=== PATIENT | female | born 1965 | race Caucasian/White ===

== ENCOUNTER 2017-07-24 03:18 | Emergency (ER) | payer BC ==
[2017-07-24 03:56] VITALS: BP 155/103
--- NOTE | 2017-07-24 04:17 | EDM.PDOC ---
ED HPI GENERAL MEDICAL PROBLEM - General Chief Complaint: ENT Problem Stated Complaint: sob Time Seen by Provider: 07/24/17 03:28 Source of Information: Reports: Patient, Family (), Old Records, RN Notes Reviewed History Limitations: Reports: No Limitations - History of Present Illness INITIAL COMMENTS - FREE TEXT/NARRATIVE: The patient states that she has been suffering from seasonal allergies for months. She saw her PCP, Dr. Damian, in March, and was prescribed Dymista nasal spray, which she states did not help. She then saw her food management aide this past , 07/17/2017, and was started on Mary-D and Omnaris nasal spray, which she started 07/18/2017. She states that these have not helped, either. She now presents with the sensation that her throat is closing, and that she cannot get enough air, since 22:30 tonight. She denies prior similar symptoms. It is noted that the patient's oxygen saturation is 100% on room air. 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 She is on immunosuppressant medications. The patient admits that she has been very anxious about her medical condition. - Related Data Allergies Allergy/AdvReac Type Severity Reaction Status Date / Time house dust Allergy Severe Other Verified 01/26/16 12:14 ciprofloxacin HCl Allergy Anaphylactic Verified 01/26/16 12:14 [From Cipro] Shock Sugars, Metabolically Active AdvReac Mild Other Verified 01/26/16 12:14 yeast, dried [yeast] AdvReac Mild Other Verified 01/26/16 12:14 Home Meds: Home Meds ClonazePAM [KlonoPIN] 0.5 mg PO BEDTIME 07/30/14 [History] Furosemide [Lasix] 80 mg PO DAILY 07/30/14 [History] Lactase [Lactaid] 3,000 units PO ASDIRECTED PRN 07/30/14 [History] Cholecalciferol (Vitamin D3) [Vitamin D3] 50,000 unit PO WEEKLY 11/08/15 [ History] Loperamide HCl [Imodium A-D] 4 mg PO ASDIRECTED PRN 11/08/15 [History] Ondansetron [Zofran ODT] 8 mg PO Q8H PRN 12/30/15 [History] oxyCODONE ER [OxyCONTIN] 20 mg PO Q12HR 11/08/15 [History] Fexofenadine [Mary] 180 mg PO Q24H PRN 12/30/15 [History] Vitamin A 20,000 intnl unit PO DAILY 01/26/16 [History] Lactulose [Cephulac] 20 gm PO Q12H 30 Days cup 01/29/16 [Rx] Rifaximin [Xifaxan] 550 mg PO BID #60 tablet 01/29/16 [Rx] Spironolactone [Aldactone] 12.5 mg PO DAILY #30 tablet 01/29/16 [Rx] Past Medical History HEENT History: Reports: Allergic Rhinitis, Other (See Below) Other HEENT History: WEARS CONTACTS Gastrointestinal History: Reports: 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, with subsequent portal hypertension, including esophageal varices), Other (See Below) (Primary sclerosing cholangitis) Hematologic History: Reports: Anemia - Past Surgical History GI Surgical History: Reports: Lysis of Adhesions, Other (See Below) (Liver transplant April 2016) Social & Family History - Family History Family Medical History: Noncontributory - Tobacco Use Smoking Status *Q: Never Smoker Second Hand Smoke Exposure: No - Caffeine Use Caffeine Use: Reports: Soda - Alcohol Use Alcohol Use History: No - Recreational Drug Use Recreational Drug Use: No - Living Situation & Occupation Living situation: Reports: ([facility]), with Spouse Occupation: Employed ED ROS GENERAL - Review of Systems Review Of Systems: See Below Constitutional: Reports: No Symptoms HEENT: Reports: Rhinitis Respiratory: Reports: Shortness of Breath Cardiovascular: Reports: No Symptoms Endocrine: Reports: No Symptoms GI/Abdominal: Reports: No Symptoms : Reports: No Symptoms Musculoskeletal: Reports: No Symptoms Skin: Reports: No Symptoms Neurological: Reports: No Symptoms Psychiatric: Reports: No Symptoms Hematologic/Lymphatic: Reports: No Symptoms Immunologic: Reports: No Symptoms ED EXAM, GENERAL - Physical Exam Exam: See Below Exam Limited By: No Limitations General Appearance: Alert, WD/WN, No Apparent Distress, Anxious Eye Exam: Bilateral Eye: Normal Inspection Ears: Normal External Exam, Normal Canal, Hearing Grossly Normal, Normal TMs Nose: Normal Inspection, Normal Mucosa (nasal passages are wide open), No Blood Throat/Mouth: Normal Inspection, Normal Lips, Normal Teeth, Normal Gums, Normal Oropharynx, Normal Voice, No Airway Compromise Head: Atraumatic, Normocephalic Neck: Normal Inspection, Supple, Non-Tender, Full Range of Motion. No: Lymphadenopathy (L), Lymphadenopathy (R) Respiratory/Chest: No Respiratory Distress, Lungs Clear, Normal Breath Sounds, No Accessory Muscle Use. No: Crackles, Rhonchi, Wheezing Cardiovascular: Normal Peripheral Pulses, Regular Rate, Rhythm, No Gallop, No JVD, No Murmur, No Rub Peripheral Pulses: 4+: Radial (L), Radial (R) GI/Abdominal: Normal Bowel Sounds, Soft, Non-Tender, No Organomegaly, No Distention, No Abnormal Bruit, No Mass (Female) Exam: Deferred Rectal (Female) Exam: Deferred Back Exam: Normal Inspection, Full Range of Motion, NT Extremities: Normal Inspection, Normal Range of Motion, No Pedal Edema, Normal Capillary Refill Neurological: Alert, Oriented, Normal Cognition, No Motor/Sensory Deficits Psychiatric: Anxious Skin Exam: Warm, Dry, Intact, Normal Color, No Rash Lymphatic: No Adenopathy Course - Vital Signs Last Recorded V/S: Last Vital Signs Temp 37.1 C 07/24/17 03:24 Pulse 115 H 07/24/17 03:24 Resp 22 H 07/24/17 03:24 BP 155/103 H 07/24/17 03:24 Pulse Ox 100 07/24/17 03:24 - Re-Assessments/Exams Free Text/Narrative Re-Assessment/Exam: 07/24/17 04:11 The patient's oxygen saturation is 100% on room air, although the patient feels like she cannot get enough air. Clearly, the patient is hyperventilating. We discussed the option of confirming this with an ABG, but I don't feel that it is necessary, and neither does she. Hyperventilation is usually caused by anxiety, although there are medical conditions that can cause it, as well, however, in this case, it is quite clear that the patient is suffering from anxiety, and has likely been suffering from anxiety for several months, which would help explain why the Dymista, Mary, and Omnaris have been ineffective. Additionally, the patient appears to have clear nasal passages, not consistent with severe nasal congestion due to allergies. The patient has an appointment to see Dr. Damian this friday, 2016. I am recommending to the patient that they discuss long-term treatment options for anxiety at that visit. Departure - Departure Time of Disposition: 04:14 Disposition: Home, Self-Care 01 Condition: Good Clinical Impression: Hyperventilation syndrome, Anxiety - Discharge Information Instructions: Panic Attacks, [id number] Referrals: iT Tucker MD [Primary Care Provider] - Forms: ED Department Discharge Additional Instructions: You were seen in the emergency room for the sensation of your throat closing, and that you could not get enough air. In the emergency room, it was noticed that your oxygen saturation was 100% on room air, consistent with hyperventilation. On examination, your nasal passages and throat appeared to be open and normal. Your symptoms are MOST LIKELY due to anxiety. We recommend you discuss long-term treatment options for anxiety with Dr. Atiya Luna when you see him this 07/29/2017. If any other problems, please do not hesitate to return to the ER.
== END 2017-07-24 04:28 | disposition home or self-care (01) ==
LOC: JD.ED 03:18
DX: F45.8 Other somatoform disorders (principal); F41.9 Anxiety disorder, unspecified; Z88.1 Allergy status to other antibiotic agents; Z79.899 Other long term (current) drug therapy; Z86.2 Personal history of diseases of the blood and blood-forming organs and certain disorders involving the immune mechanism
CPT/HCPCS: 99283

== ENCOUNTER 2018-05-01 15:31 | Emergency (ER) | payer OTHER, BC ==
[2018-05-01 15:47] VITALS: BP 128/78
--- NOTE | 2018-05-01 15:56 | EDM.PDOC ---
ED HPI GENERAL MEDICAL PROBLEM - General Chief Complaint: Upper Extremity Injury/Pain Stated Complaint: RIGHT WRIST INJURY Time Seen by Provider: 05/01/18 15:47 Source of Information: Reports: Patient, Family History Limitations: Reports: No Limitations - History of Present Illness INITIAL COMMENTS - FREE TEXT/NARRATIVE: The patient states that she grabbed her car door handle around 14:30, but slipped because it was wet, falling backwards onto her buttocks and right hand/ wrist. She presents with pain and swelling to the dorsal aspect of her right hand, at the base of her right thumb. She is otherwise uninjured. The patient's PCP is Dr. Damian. Right Wrist Pain Score (Numeric/FACES): 8 - Related Data Allergies Allergy/AdvReac Type Severity Reaction Status Date / Time house dust Allergy Severe Other Verified 05/01/18 15:39 ciprofloxacin HCl Allergy Anaphylactic Verified 05/01/18 15:39 [From Cipro] Shock Sugars, Metabolically Active AdvReac Mild Other Verified 05/01/18 15:39 yeast, dried [yeast] AdvReac Mild Other Verified 05/01/18 15:39 Home Meds: Home Meds ClonazePAM [KlonoPIN] 0.5 mg PO BEDTIME 07/30/14 [History] Furosemide [Lasix] 80 mg PO DAILY 07/30/14 [History] Lactase [Lactaid] 3,000 units PO ASDIRECTED PRN 07/30/14 [History] Cholecalciferol (Vitamin D3) [Vitamin D3] 50,000 unit PO WEEKLY 11/08/15 [ History] Loperamide HCl [Imodium A-D] 4 mg PO ASDIRECTED PRN 11/08/15 [History] Ondansetron [Zofran ODT] 8 mg PO Q8H PRN 11/08/15 [History] oxyCODONE ER [OxyCONTIN] 20 mg PO Q12HR 11/08/15 [History] Fexofenadine [Mary] 180 mg PO Q24H PRN 12/30/15 [History] Vitamin A 20,000 intnl unit PO DAILY 01/26/16 [History] Lactulose [Cephulac] 20 gm PO Q12H 30 Days cup 01/29/16 [Rx] Rifaximin [Xifaxan] 550 mg PO BID #60 tablet 01/29/16 [Rx] Spironolactone [Aldactone] 12.5 mg PO DAILY #30 tablet 01/29/16 [Rx] Acetaminophen/HYDROcodone [Homestead 325-5 MG] 1 - 2 tab PO Q6H PRN #20 tablet 05/01 [Rx] Past Medical History HEENT History: Reports: Allergic Rhinitis, Other (See Below) Other HEENT History: WEARS CONTACTS Gastrointestinal History: Reports: Other (See Below) (Hx primary sclerosing cholangitis, leading to cirrhosis and portal hypertension, including esophageal varices, now status post liver transplant April 2016) Hematologic History: Reports: Anemia - Past Surgical History GI Surgical History: Reports: Lysis of Adhesions, Other (See Below) (Liver transplant April 2016) Social & Family History - Family History Family Medical History: Noncontributory - Tobacco Use Smoking Status *Q: Never Smoker - Caffeine Use Caffeine Use: Reports: None - Recreational Drug Use Recreational Drug Use: No - Living Situation & Occupation Living situation: Reports: ([facility]), with Spouse Occupation: Employed Review of Systems - Review of Systems Review Of Systems: ROS reveals no pertinent complaints other than HPI. ED EXAM, GENERAL - Physical Exam Exam: See Below Exam Limited By: No Limitations General Appearance: Alert, WD/WN, Mild Distress (Appears uncomfortable) Extremities: Other (Significant swelling over the base of the right thumb and carpal bones. There is tender. No significant ecchymosis. Minimal pain is induced with compression of the mid radius and ulna. Pain is induced with attempt at supination. Neurovascular status of the right upper extremity is intact.) ED TRAUMA EXTREMITY PROCEDURES - Splinting Right Upper Extremity Splint Site: Rt wrist Pre-Procedure NV Status: Normal Post-Procedure NV Status: Normal Splint Material: Fiberglass Splint Design: Gutter Applied & Form Fitted By: Provider Provider Post-Splint Application NV Check: NV Status Normal, Good Position Complications: No Course - Vital Signs Last Recorded V/S: Last Vital Signs Temp 36.3 C 05/01/18 15:43 Pulse 96 05/01/18 15:43 Resp 18 05/01/18 15:43 BP 128/78 05/01/18 15:43 Pulse Ox 99 05/01/18 15:43 - Orders/Labs/Meds Orders: Active Orders 24 hr Category Date Time Status Hand Comp Min 3V Rt [CR] Stat Exams 05/01/18 15:51 Taken Wrist Comp Min 3V Rt [CR] Stat Exams 05/01/18 15:51 Taken Meds: Medications Discontinued Medications Generic Name Dose Route Start Last Admin Trade Name Freq PRN Reason Stop Dose Admin Hydromorphone HCl 0.5 mg 05/01/18 16:04 05/01/18 16:13 Dilaudid IM 05/01/18 16:05 0.5 mg ONETIME STA Administration - Re-Assessments/Exams Free Text/Narrative Re-Assessment/Exam: 05/01/18 15:52 The patient has obvious swelling to the base of her right thumb, and associated carpal bones. She was offered pain medication, but declined at this time. 05/01/18 16:05 The patient has changed her mind and would like something for pain. I have ordered Dilaudid 0.5 mg IM. 05/01/18 16:34 4-view radiographs of the right hand appear to demonstrate a comminuted and moderately dorsally displaced fracture of the distal radius. No other bony injuries seen. Formal read per the Radiologist pending. 4-view radiographs of the right wrist appear to demonstrate a comminuted and moderately dorsally displaced fracture of the distal radius. The ulnar styloid appears to be intact. Formal read per the Radiologist pending. 05/01/18 17:14 A gutter splint was placed on the patient's right upper extremity, extending from the MCPs to just above her elbow, in a thumbs-up position, with the elbow at 90. An arm sling was provided for the patient. She will be discharged home with a prescription for Homestead, and a referral to Dr. Stephenson. Departure - Departure Time of Disposition: 17:15 Disposition: Home, Self-Care 01 Condition: Good Clinical Impression: Distal radius fracture, right - Discharge Information Prescriptions: Acetaminophen/HYDROcodone [Homestead 325-5 MG] 1 - 2 tab PO Q6H PRN #20 tablet PRN Reason: Pain (Severe 7-10) Referrals: Ti Tucker MD [Primary Care Provider] - Jaycob Stephenson MD [Physician] - Forms: ED Department Discharge Additional Instructions: You were seen in the emergency room after falling onto your right wrist while opening your vehicle door. Workup in the ER included x-rays of your right hand and wrist, which demonstrated a distal right radius fracture. Your right arm has been placed into a splint. The splint cannot get wet. Do not remove the splint. Elevate and ice your right wrist is much as possible over the next 2 days, to help minimize swelling. An ice pack to be placed directly onto the splint over your wrist. Take [id number] ibuprofen, 2-3 tablets (400-600 mg) every 8 hours, with food, as needed for pain. You have been prescribed the narcotic pain medication Homestead. Take 1-2 tablets of Homestead up to every 6 hours, as needed for pain not relieved by ibuprofen. If you take Homestead, do not drive for 10 hours afterwards. Homestead will likely cause constipation, so consider taking a stool softener. There is a good chance that you will require surgery. Follow-up with your own Orthopedic Surgeon, or Dr. Stephenson, this coming week. If any other problems, please do not hesitate to return to the ER. - My Orders Last 24 Hours: My Active Orders 05/01/18 15:51 Hand Comp Min 3V Rt [CR] Stat Wrist Comp Min 3V Rt [CR] Stat - Assessment/Plan Last 24 Hours: My Active Orders 05/01/18 15:51 Hand Comp Min 3V Rt [CR] Stat Wrist Comp Min 3V Rt [CR] Stat
[2018-05-01] MEDS ORDERED: HYDROmorphone 0.5 MG/0.5 ML SYRINGE IM STA (16:04)
--- NOTE | 2018-05-04 07:49 | CR ---
Right wrist: Four views of the right wrist were obtained. Comparison: No prior wrist exam. Distal radial fracture is seen with slight comminution and articular extension. Slight posterior impaction is seen. Fracture within the ulnar styloid process is noted. Incidental cystic change is seen within the carpal bones. Diffuse soft tissue swelling is seen. Impression: 1. Distal radial fracture as described above as well as ulnar styloid avulsion fracture. 2. Soft tissue swelling and incidental cystic change within the carpal bones. Diagnostic code #3
--- NOTE | 2018-05-04 07:49 | CR ---
Right hand: Four views of the right hand were obtained. Comparison: No prior hand exam. Distal radial fracture is seen with posterior impaction. Fracture is seen within the ulnar styloid process. No fracture is seen within the hand. Impression: 1. Distal radial and ulnar styloid process fracture. 2. Nothing acute is seen within the right hand. Diagnostic code #3
== END 2018-05-01 17:30 | disposition home or self-care (01) ==
LOC: JD.ED 15:31
DX: S52.501A Unspecified fracture of the lower end of right radius, initial encounter for closed fracture (principal); Z88.1 Allergy status to other antibiotic agents; Z88.8 Allergy status to other drugs, medicaments and biological substances; Z79.899 Other long term (current) drug therapy; W18.39XA Other fall on same level, initial encounter
CPT/HCPCS: 29125; 73110; 73130; 99283; J1170

== ENCOUNTER 2018-05-24 19:39 | Emergency (ER) | payer BC, OTHER ==
[2018-05-24 20:11] VITALS: BP 155/100
--- NOTE | 2018-05-24 20:46 | EDM.PDOC ---
ED HPI GENERAL MEDICAL PROBLEM - General Chief Complaint: General Stated Complaint: NEEDS BLOOD CHECK Time Seen by Provider: 05/24/18 20:22 Source of Information: Reports: Patient, Family () History Limitations: Reports: No Limitations - History of Present Illness INITIAL COMMENTS - FREE TEXT/NARRATIVE: The patient states that she wants her hemoglobin checked, and, since we're drawing blood, her potassium as well. She states that she has been feeling cold for about a month, progressively getting worse. She states that she was feeling dizzy last week. She felt head pressure today, and also feels like her stomach was full yesterday, and today. She noticed blood streaks in an otherwise normal stool last week and again today. No recent nausea, vomiting, consultation, or diarrhea. No urinary symptoms. No recent fever. No recent chest pain, palpitations, or dyspnea. Specifically, the patient does not complain of easy fatigability or a roaring sound in her ears. She states that she had similar symptoms previously, before her liver transplantation. She states that her normal hemoglobin is around 11, last checked on or about 05/14, as pre-op for left wrist ORIF 05/15/2018. The patient's PCP is Dr. Damian. - Related Data Allergies Allergy/AdvReac Type Severity Reaction Status Date / Time house dust Allergy Severe Other Verified 05/01/18 15:39 ciprofloxacin HCl Allergy Anaphylactic Verified 05/01/18 15:39 [From Cipro] Shock Sugars, Metabolically Active AdvReac Mild Other Verified 05/01/18 15:39 yeast, dried [yeast] AdvReac Mild Other Verified 05/01/18 15:39 Home Meds: Home Meds Furosemide [Lasix] 40 mg PO BID 07/30/14 [History] Fexofenadine [Mary] 180 mg PO Q24H PRN 12/30/15 [History] Calcium Carb & Citrate/Vit D3 [Calcium + D3 ER Tablet] 10 ml PO DAILY 05/24/18 [ History] Cyclobenzaprine [Flexeril] 10 mg PO BEDTIME 05/24/18 [History] Docusate Sodium [Stool Softener] 200 mg PO DAILY 05/24/18 [History] Everolimus [Zortress] 4 mg PO BID 05/24/18 [History] Pantoprazole Sodium [Protonix] 0 mg PO BID 05/24/18 [History] Spironolactone [Aldactone] 100 mg PO ASDIRECTED 05/24/18 [History] rOPINIRole [Requip] 0.5 mg PO ASDIRECTED 05/24/18 [History] Past Medical History HEENT History: Reports: Allergic Rhinitis, Impaired Vision Gastrointestinal History: Reports: Other (See Below) (Primary sclerosing cholangitis leading to cirrhosis, leading to portal hypertension and esophageal varices, requiring liver transplantation) Musculoskeletal History: Reports: Fracture (right radius) Hematologic History: Reports: Anemia - Past Surgical History GI Surgical History: Reports: Cholecystectomy, Lysis of Adhesions, Other (See Below) (Liver transplant April 2016) Musculoskeletal Surgical History: Reports: ORIF (right radius 05/15/2018) Social & Family History - Family History Family Medical History: Noncontributory - Tobacco Use Smoking Status *Q: Never Smoker - Caffeine Use Caffeine Use: Reports: Soda - Alcohol Use Alcohol Use History: No - Recreational Drug Use Recreational Drug Use: No - Living Situation & Occupation Living situation: Reports: , with Spouse Occupation: Employed ([employer]) ED ROS GENERAL - Review of Systems Review Of Systems: ROS reveals no pertinent complaints other than HPI. ED EXAM, GENERAL - Physical Exam Exam: See Below Exam Limited By: No Limitations General Appearance: Alert, WD/WN, No Apparent Distress, Anxious Eye Exam: Bilateral Eye: EOMI, Normal Inspection, Other (conjunctiva slightly pale) Ears: Normal External Exam, Hearing Grossly Normal Nose: Normal Inspection, No Blood Throat/Mouth: Normal Inspection, Normal Lips, Normal Voice, No Airway Compromise Head: Atraumatic, Normocephalic Neck: Normal Inspection, Full Range of Motion Respiratory/Chest: No Respiratory Distress, Lungs Clear, Normal Breath Sounds, No Accessory Muscle Use Cardiovascular: Normal Peripheral Pulses, No Gallop, No JVD, No Murmur, No Rub, Tachycardia (regular) Peripheral Pulses: 4+: Radial (L), Radial (R) GI/Abdominal: Normal Bowel Sounds, Soft, No Organomegaly, No Distention, No Abnormal Bruit, No Mass, Tender (Generalized, non-focal, mild) (Female) Exam: Deferred Rectal (Female) Exam: Deferred Back Exam: Normal Inspection, Full Range of Motion, NT Extremities: Normal Inspection, Normal Range of Motion, No Pedal Edema, Normal Capillary Refill Neurological: Alert, Oriented, Normal Cognition, No Motor/Sensory Deficits Psychiatric: Anxious Skin Exam: Warm, Dry, Intact, Normal Color, No Rash Course - Vital Signs Last Recorded V/S: Last Vital Signs Temp 36.6 C 05/24/18 20:10 Pulse 107 H 05/24/18 20:10 Resp 20 05/24/18 20:10 BP 155/100 H 05/24/18 20:10 Pulse Ox 99 05/24/18 20:10 Orthostatic Blood Pressure [ 140/98 Standing] Orthostatic Blood Pressure [ 139/89 Supine] - Orders/Labs/Meds Orders: Active Orders 24 hr Category Date Time Status Orthostatic Vital Signs [RC] STAT Care 05/24/18 20:40 Active - Re-Assessments/Exams Free Text/Narrative Re-Assessment/Exam: 05/24/18 20:43 The patient is here requesting that her hemoglobin be checked, and, while we're at it, her potassium. Upon questioning, the patient states that she has been feeling cold for more than a month, getting worse, that she felt dizzy last week , that she feels head pressure today, that her stomach feels full since yesterday, and that she noticed some blood mixed with otherwise normal stool last week and again today. No other constitutional symptoms. I have ordered orthostatics; if she is orthostatic, I will order some blood work, if not, then it may be difficult to justify non-emergent bloodwork from the ED, when it could just as easily be ordered tomorrow morning by her PCP. 05/24/18 21:19 The patient is not orthostatic. 05/24/18 21:30 Anemia was discussed with the patient and her . Anemia essentially causes two problems - decreased oxygen delivery to the tissues, and, if acute and severe, hypovolemia. As the patient is not orthostatic, she is not hypovolemic. She has no symptoms of decreased oxygen delivery, which would produce easy fatigability, dyspnea, palpitations, and a roaring sound in her ears. If she is anemic, it must therefore be a slow, chronic drop in her hemoglobin, slow enough that her body has been able to volume compensate for it. This is unlikely, since her hemoglobin was at her baseline of 11 less than 2 weeks ago. Additionally, none of the patient's symptoms - feeling cold, feeling dizzy last week, feeling head pressure today, and feeling a full stomach yesterday and today - are symptoms of anemia. These symptoms seem more consistent with ethmoid sinusitis. Lastly, the patient's conjunctiva are only mildly pale. I offered to draw her CBC if she first filled out an ABN, however, the patient would prefer to follow-up with her PCP, Dr. Damian, tomorrow. Departure - Departure Time of Disposition: 21:38 Disposition: Home, Self-Care 01 Condition: Good Clinical Impression: Patient requested test - Discharge Information *PRESCRIPTION DRUG MONITORING PROGRAM REVIEWED*: Not Applicable *COPY OF PRESCRIPTION DRUG MONITORING REPORT IN PATIENT NBA: Not Applicable Referrals: Ti Tucker MD [Primary Care Provider] - Forms: ED Department Discharge Additional Instructions: You were seen in the emergency room requesting that your hemoglobin and potassium be checked. Evaluation in the ER included orthostatic blood pressures, which returned as normal. You are not volume depleted. As discussed, feeling cold, dizzy last week, head pressure today, and the feeling of a full stomach yesterday and today are not symptoms of anemia or hypokalemia, therefore checking a hemoglobin or potassium would be difficult to justify from the emergency department. Follow-up with your PCP, Dr. Damian, tomorrow, 05/25/2018, for an outpatient evaluation. If any other problems, please do not hesitate to return to the ER. - My Orders Last 24 Hours: My Active Orders 05/24/18 20:40 Orthostatic Vital Signs [RC] STAT - Assessment/Plan Last 24 Hours: My Active Orders 05/24/18 20:40 Orthostatic Vital Signs [RC] STAT
== END 2018-05-24 21:50 | disposition home or self-care (01) ==
LOC: JD.ED 19:39
DX: Z13.9 Encounter for screening, unspecified (principal)
CPT/HCPCS: 99283; 99284

== ENCOUNTER 2021-12-13 10:42 | Emergency (ER) | payer BC ==
[2021-12-13] MEDS ORDERED: HYDROmorphone 1 MG/ML Syringe IVPUSH ONE ×2 (12:27→15:43)
[2021-12-13] MEDS: Sodium Chloride 0.9% 10 ML Syringe FLUSH PRN ×3 (12:48→16:58)
[2021-12-13] MEDS ORDERED: Ketorolac 30 MG/ML SDV IVPUSH ONE (15:43)
[2021-12-13] MEDS ORDERED: methylPREDNISolone Sodium Succinate 125 MG/2 ML SDV IVPUSH ONE (16:46)
[2021-12-13] MEDS ORDERED: Ondansetron 4 MG Tab.DIS PO ONE (18:32)
== END 2021-12-13 18:25 | disposition home or self-care (01) ==
LOC: JD.ED 10:42
DX: M79.604 Pain in right leg (principal); M79.605 Pain in left leg; Z88.1 Allergy status to other antibiotic agents; Z91.018 Allergy to other foods; Z91.048 Other nonmedicinal substance allergy status; Z86.16 Personal history of COVID-19
CPT/HCPCS: 36415; 80053; 82550; 83735; 84550; 85025; 85610; 85652; 85730; 86038; 86140; 86430; 93925; 93925-26; 96374; 96375; 96376; 99284-25; A9270-GY; J1170; J1885; J2930

== ENCOUNTER 2022-08-15 02:33 | Observation (INO) | payer BC ==
[2022-08-15] MEDS ORDERED: Ondansetron 4 MG/2 ML SDV IVPUSH ONE (04:10)
[2022-08-15] MEDS ORDERED: Piperacillin/Tazobactam 4.5 GM Vial ONE (04:11)
[2022-08-15] MEDS ORDERED: Ondansetron 4 MG/2 ML SDV ONE (04:11)
[2022-08-15] MEDS ORDERED: Sodium Chloride 0.9% 1,000 ML ONE (04:11)
[2022-08-15] MEDS ORDERED: Sodium Chloride 0.9% 100 ML ONE (04:11)
[2022-08-15] MEDS ORDERED: Piperacillin/Tazobactam 4.5 GM in Sodium Chloride 0.9% 100 ML IV ONE ×2 (04:12→20:00)
[2022-08-15 04:45] LABS: ESTIMATED GFR 40 mL/min (>60)
[2022-08-15] MEDS ORDERED: Sodium Chloride 0.9% 1,000 ML IV ONE (05:15)
[2022-08-15] MEDS ORDERED: LORazepam 2 MG/ML SDV ONE (05:40)
[2022-08-15] MEDS ORDERED: LORazepam 2 MG/ML SDV IVPUSH ONE (06:02)
[2022-08-15] MEDS ORDERED: Iopamidol 755 Mg/ML 100 ML Bottle IVPUSH ONE (06:14)
[2022-08-15] MEDS ORDERED: Sodium Chloride 0.9% 100 ML IV SCH (06:15)
[2022-08-15] MEDS ORDERED: Albuterol/Ipratropium 3.0-0.5 MG/3 ML Neb Soln ONE ×2 (06:32→18:37)
[2022-08-15] MEDS ORDERED: Azithromycin 500 MG Vial ONE (09:06)
[2022-08-15] MEDS ORDERED: Sodium Chloride 0.9% 250 ML ONE (09:06)
[2022-08-15] MEDS ORDERED: Dextrose 5%-Lactated Ringers 1,000 ML ONE (09:10)
[2022-08-15] MEDS ORDERED: Azithromycin 500 MG in Sodium Chloride 0.9% 250 ML IV ONE (09:32)
[2022-08-15] MEDS ORDERED: Albuterol/Ipratropium 3.0-0.5 MG/3 ML Neb Soln NEB PRN (10:16)
[2022-08-15] MEDS ORDERED: Lactated Ringers 1,000 ML IV ONE ×2 (10:32→21:15)
[2022-08-15] MEDS ORDERED: Benzonatate 100 MG Cap ONE ×2 (10:46→18:46)
[2022-08-15] MEDS ORDERED: Benzonatate 100 MG Cap PO ONE ×2 (10:46→18:50)
[2022-08-15] MEDS ORDERED: Heparin Sodium 5,000 Units/ML Vial SUBCUT ONE (14:20)
[2022-08-15] MEDS ORDERED: Albuterol/Ipratropium 3.0-0.5 MG/3 ML Neb Soln INH ONE (18:30)
[2022-08-15] MEDS ORDERED: Furosemide 40 MG Tab PO ONE (21:00)
[2022-08-21 15:11] VITALS: BP 115/76; PULSE 110
== END 2022-08-16 13:40 | disposition home or self-care (01) ==
LOC: JD.ED 02:33 → JD.ZCENSUS 12:07 → JD.ED 12:56
PROVIDERS: ADMIT Hospitalist; ATTEND Hospitalist
DX: R05.9 Cough, unspecified (principal); J32.9 Chronic sinusitis, unspecified; J21.9 Acute bronchiolitis, unspecified; J18.9 Pneumonia, unspecified organism; Z79.899 Other long term (current) drug therapy
CPT/HCPCS: 36415; 70486; 70486-26; 71045; 71045-26; 71275; 71275-26; 74177; 74177-26; 80053; 81001; 83605; 83690; 83735; 84145; 84484; 85025; 85652; 86140; 86738; 87040; 93005; 93010; 94640; 94667; 96365; 96366; 96367; 96375; 99217; 99220; 99284; 99285-25; A9270-GY; J0456; J1644; J2060; J2405; J2543; J7030; J7050; J7120; J7620-GY; Q9967

== ENCOUNTER 2022-12-17 16:38 | Emergency (ER) | payer BC ==
[2022-12-17 17:12] VITALS: PULSE 117
[2022-12-17 17:17] VITALS: BP 135/92
[2022-12-17 18:34] LABS: ESTIMATED GFR 48 mL/min (>60)
[2022-12-17] MEDS ORDERED: Sodium Chloride 0.9% 1,000 ML IV SCH (19:30)
== END 2022-12-17 21:20 | disposition left against medical advice (07) ==
LOC: JD.ED 16:38
DX: R10.12 Left upper quadrant pain (principal); Z88.1 Allergy status to other antibiotic agents; Z88.0 Allergy status to penicillin; Z91.018 Allergy to other foods; Z91.048 Other nonmedicinal substance allergy status; Z91.09 Other allergy status, other than to drugs and biological substances
CPT/HCPCS: 36415; 80053; 83690; 83735; 85025; 85379; 86140; 99284

== ENCOUNTER 2023-09-11 06:42 | Day surgery (SDC) | payer BC ==
[~2023-09-11 06:42] MED LIST: Lactated Ringers 1,000 ML IV SCH; Lidocaine 0.5% 50 ML SDV ONE; Sodium Chloride 0.9% 10 ML Syringe FLUSH PRN; Sodium Chloride 0.9% 10 ML Syringe FLUSH SCH
[2023-09-11] MEDS ORDERED: fentaNYL 100 MCG/2 ML SDV ONE (06:43)
[2023-09-11] MEDS ORDERED: Lidocaine 1% 2 ML ONE (06:43)
[2023-09-11] MEDS ORDERED: Propofol 200 MG/20 ML SDV ONE ×2 (06:43→07:54)
[2023-09-11] MEDS ORDERED: Midazolam 1 MG/ML 2 ML SDV ONE (07:32)
[2023-09-11] MEDS ORDERED: ceFAZolin 2 GM Vial ONE (07:43)
[2023-09-11] MEDS ORDERED: Dexmedetomidine 200 MCG/2 ML SDV ONE (07:44)
[2023-09-11] MEDS ORDERED: Ondansetron 4 MG/2 ML SDV ONE (08:07)
[2023-09-11] MEDS ORDERED: Bupivacaine 0.25% 10 ML SDV ONE (09:09)
[2023-09-11 13:58] VITALS: BP 124/55; PULSE 97
== END 2023-09-11 10:23 | disposition home or self-care (01) ==
LOC: JD.SDS 06:42
PROVIDERS: ATTEND Orthopaedic Surgery
DX: G56.01 Carpal tunnel syndrome, right upper limb (principal); E11.22 Type 2 diabetes mellitus with diabetic chronic kidney disease; N18.30 Chronic kidney disease, stage 3 unspecified; E11.40 Type 2 diabetes mellitus with diabetic neuropathy, unspecified; K21.9 Gastro-esophageal reflux disease without esophagitis; E78.5 Hyperlipidemia, unspecified; M81.0 Age-related osteoporosis without current pathological fracture; G25.81 Restless legs syndrome; Z88.1 Allergy status to other antibiotic agents; Z88.0 Allergy status to penicillin; Z79.899 Other long term (current) drug therapy; Z79.52 Long term (current) use of systemic steroids
CPT/HCPCS: 64721; 87641; J0690; J2250; J2405; J2704; J3010; J3490; J7120

== ENCOUNTER 2023-10-06 11:36 | Emergency (ER) | payer BC ==
[2023-10-06] MEDS ORDERED: Sodium Chloride 0.9% 10 ML Syringe FLUSH PRN (12:03)
[2023-10-06] MEDS ORDERED: HYDROmorphone 0.5 MG/0.5 ML Syringe IVPUSH ONE (12:39)
[2023-10-06 12:50] LABS: BASOPHILS PERCENT AUTO 0.4 % (0.0-1.0); EOSINOPHILS ABSOLUTE AUTO 0.1 K/mm3 (0.0-0.4); EOSINOPHILS PERCENT AUTO 0.6 % (0.0-6.0); HEMOGLOBIN 11.5 gm/dl (12.0-16.0); IMMATURE GRAN ABSOLUTE AUTO 0.03 K/mm3 (0.00-0.05); IMMATURE GRAN PERCENT AUTO 0.4 % (0.0-0.4); LYMPHOCYTES ABSOLUTE AUTO 0.5 K/mm3 (1.0-4.8); LYMPHOCYTES PERCENT AUTO 6.4 % (24.0-44.0); MEAN CORPUSCULAR HGB CONC 33.8 g/dl (32.0-36.0); MEAN CORPUSCULAR VOLUME 91.6 fl (83.0-99.0); MEAN PLATELET VOLUME 9.3 fl (9.4-12.3); MONOCYTES ABSOLUTE AUTO 0.4 K/mm3 (0.0-0.8); MONOCYTES PERCENT AUTO 5.3 % (0.0-8.0); NEUTROPHILS ABSOLUTE AUTO 6.9 K/mm3 (1.8-7.7); NEUTROPHILS PERCENT AUTO 86.9 % (41.0-71.0); PLATELET COUNT,PLT 204 K/mm3 (150-400); RED BLOOD CELL COUNT 3.71 M/mm3 (4.10-5.30); WHITE BLOOD CELL COUNT,WBC 7.98 K/mm3 (3.9-11.3)
[2023-10-06 13:22] LABS: A/G RATIO 0.8 (1-2); ALBUMIN 3.8 g/dl (3.4-5.0); ANION GAP 14.4 (5-15); BILIRUBIN TOTAL 0.5 mg/dL (0.2-1.0); BUN/CREATININE RATIO 14.5 (14-18); C-REACTIVE PROTEIN 9.2 mg/dL (<1.0); CALCIUM 9.2 mg/dL (8.5-10.1); CREATININE 1.1 mg/dL (0.55-1.02); EST CRCL DRUG DOSING (CG) 40.04 mL/min; POTASSIUM,K 4.4 mEq/L (3.5-5.1); PROTEIN TOTAL,TP 8.3 g/dl (6.4-8.2)
[2023-10-06] MEDS ORDERED: cefTRIAXone 2 GM in Sodium Chloride 0.9% 100 ML IV ONE (13:48)
[2023-10-06 16:11] VITALS: BP 153/90; PULSE 102
== END 2023-10-06 15:05 | disposition home or self-care (01) ==
LOC: JD.ED 11:36
DX: L03.115 Cellulitis of right lower limb (principal); L03.116 Cellulitis of left lower limb; Z86.16 Personal history of COVID-19; Z77.22 Contact with and (suspected) exposure to environmental tobacco smoke (acute) (chronic); Z88.1 Allergy status to other antibiotic agents; Z88.8 Allergy status to other drugs, medicaments and biological substances; Z91.011 Allergy to milk products; Z91.048 Other nonmedicinal substance allergy status; Z88.0 Allergy status to penicillin; Z91.018 Allergy to other foods; Z79.899 Other long term (current) drug therapy
CPT/HCPCS: 36415; 80053; 85025; 86140; 96365; 96375; 99283; J0696; J1170; J3490; 99284

== ENCOUNTER 2023-11-11 10:37 | Emergency (ER) | payer BC ==
[2023-11-11] MEDS ORDERED: Sodium Chloride 0.9% 10 ML Syringe FLUSH PRN (11:10)
[2023-11-11] MEDS ORDERED: Sodium Chloride 0.9% 1,000 ML IV STA (11:11)
[2023-11-11] MEDS ORDERED: Ondansetron 4 MG/2 ML SDV IVPUSH ONE (11:11)
[2023-11-11 12:02] LABS: BASOPHILS PERCENT AUTO 0.4 % (0.0-1.0); EOSINOPHILS ABSOLUTE AUTO 0.4 K/mm3 (0.0-0.4); EOSINOPHILS PERCENT AUTO 3.8 % (0.0-6.0); HEMATOCRIT 35.9 % (37.0-47.0); HEMOGLOBIN 11.9 gm/dl (12.0-16.0); IMMATURE GRAN ABSOLUTE AUTO 0.03 K/mm3 (0.00-0.05); IMMATURE GRAN PERCENT AUTO 0.3 % (0.0-0.4); LYMPHOCYTES ABSOLUTE AUTO 1.1 K/mm3 (1.0-4.8); LYMPHOCYTES PERCENT AUTO 11.2 % (24.0-44.0); MEAN CORPUSCULAR HEMOGLOBIN 30.7 pg (28.0-32.0); MEAN CORPUSCULAR HGB CONC 33.1 g/dl (32.0-36.0); MEAN CORPUSCULAR VOLUME 92.8 fl (83.0-99.0); MEAN PLATELET VOLUME 8.5 fl (9.4-12.3); MONOCYTES ABSOLUTE AUTO 0.7 K/mm3 (0.0-0.8); MONOCYTES PERCENT AUTO 6.8 % (0.0-8.0); NEUTROPHILS ABSOLUTE AUTO 7.5 K/mm3 (1.8-7.7); NEUTROPHILS PERCENT AUTO 77.5 % (41.0-71.0); PLATELET COUNT,PLT 226 K/mm3 (150-400); RED BLOOD CELL COUNT 3.87 M/mm3 (4.10-5.30); WHITE BLOOD CELL COUNT,WBC 9.62 K/mm3 (3.9-11.3)
[2023-11-11 12:28] LABS: CORONAVIRUS COVID-19 NAA NEGATIVE (NEGATIVE); INFLUENZA A NAA NEGATIVE (NEGATIVE); RESPIRATORY SYNCYTIAL VIR NAA NEGATIVE (NEGATIVE)
[2023-11-11 13:14] LABS: APPEARANCE,URINE CLEAR (Clear); BILIRUBIN,URINE NEGATIVE (Negative); COLOR,URINE YELLOW (Yellow); GLUCOSE,URINE NEGATIVE (Negative); KETONES,URINE NEGATIVE (Negative); LEUKOCYTE ESTERASE,URINE NEGATIVE (Negative); NITRITE,URINE NEGATIVE (Negative); OCCULT BLOOD,URINE NEGATIVE (Negative); PROTEIN,URINE NEGATIVE (Negative); UROBILINOGEN,URINE 0.2 (0.2-1.0)
[2023-11-11 13:34] LABS: BACTERIA,URINE FEW /hpf (FEW); EPITHELIAL CELLS,URINE 0-5 /hpf (0-5); HYALINE CASTS,URINE 0-5 /lpf (0-5); MUCUS,URINE FEW /hpf (FEW); RBC,URINE 0-5 /hpf (0-5); WBC,URINE 0-5 /hpf (0-5)
[2023-11-11 14:03] LABS: A/G RATIO 0.9 (1-2); ALBUMIN 3.9 g/dl (3.4-5.0); ANION GAP 14.9 (5-15); BILIRUBIN TOTAL 0.4 mg/dL (0.2-1.0); BUN/CREATININE RATIO 13.8 (14-18); C-REACTIVE PROTEIN 0.9 mg/dL (<1.0); CALCIUM 9.2 mg/dL (8.5-10.1); CREATININE 1.3 mg/dL (0.55-1.02); EST CRCL DRUG DOSING (CG) 33.88 mL/min; POTASSIUM,K 3.9 mEq/L (3.5-5.1); PROTEIN TOTAL,TP 8.4 g/dl (6.4-8.2)
[2023-11-11 14:47] VITALS: BP 126/73; PULSE 106
== END 2023-11-11 14:43 | disposition home or self-care (01) ==
LOC: JD.ED 10:37
DX: K52.9 Noninfective gastroenteritis and colitis, unspecified (principal); Z20.822 Contact with and (suspected) exposure to COVID-19; Z86.16 Personal history of COVID-19; Z79.899 Other long term (current) drug therapy; Z88.1 Allergy status to other antibiotic agents; Z88.8 Allergy status to other drugs, medicaments and biological substances; Z91.011 Allergy to milk products; Z91.048 Other nonmedicinal substance allergy status
CPT/HCPCS: 0241U; 36415; 74019; 74019-26; 80053; 81001; 83690; 85025; 86140; 93005; 96361; 96374; 99284-25; J2405; J3490; J7030

== ENCOUNTER 2023-11-26 04:38 | Emergency (ER) | payer BC ==
[2023-11-26] MEDS ORDERED: Sodium Chloride 0.9% 10 ML Syringe FLUSH PRN (05:20)
[2023-11-26 05:44] LABS: BASOPHILS ABSOLUTE AUTO 0.1 K/mm3 (0.0-0.2); EOSINOPHILS ABSOLUTE AUTO 0.8 K/mm3 (0.0-0.4); EOSINOPHILS PERCENT AUTO 10.4 % (0.0-6.0); HEMATOCRIT 34.9 % (37.0-47.0); HEMOGLOBIN 11.9 gm/dl (12.0-16.0); IMMATURE GRAN ABSOLUTE AUTO 0.02 K/mm3 (0.00-0.05); IMMATURE GRAN PERCENT AUTO 0.3 % (0.0-0.4); LYMPHOCYTES ABSOLUTE AUTO 1.6 K/mm3 (1.0-4.8); LYMPHOCYTES PERCENT AUTO 20.5 % (24.0-44.0); MEAN CORPUSCULAR HEMOGLOBIN 31.2 pg (28.0-32.0); MEAN CORPUSCULAR HGB CONC 34.1 g/dl (32.0-36.0); MEAN CORPUSCULAR VOLUME 91.6 fl (83.0-99.0); MEAN PLATELET VOLUME 9.1 fl (9.4-12.3); MONOCYTES ABSOLUTE AUTO 0.7 K/mm3 (0.0-0.8); NEUTROPHILS ABSOLUTE AUTO 4.5 K/mm3 (1.8-7.7); NEUTROPHILS PERCENT AUTO 58.8 % (41.0-71.0); PLATELET COUNT,PLT 314 K/mm3 (150-400); RED BLOOD CELL COUNT 3.81 M/mm3 (4.10-5.30)
[2023-11-26] MEDS ORDERED: hydrOXYzine HCl 25 MG Tab PO ONE ×2 (05:54→09:19)
[2023-11-26 06:03] LABS: A/G RATIO 0.8 (1-2); ALBUMIN 3.9 g/dl (3.4-5.0); ANION GAP 13.7 (5-15); BILIRUBIN TOTAL 0.3 mg/dL (0.2-1.0); BUN/CREATININE RATIO 16.7 (14-18); C-REACTIVE PROTEIN 0.9 mg/dL (<1.0); CALCIUM 9.5 mg/dL (8.5-10.1); CREATININE 1.8 mg/dL (0.55-1.02); EST CRCL DRUG DOSING (CG) 24.47 mL/min; MAGNESIUM 2.1 mg/dL (1.8-2.4); POTASSIUM,K 3.7 mEq/L (3.5-5.1); PROTEIN TOTAL,TP 8.8 g/dl (6.4-8.2)
[2023-11-26 06:17] LABS: INR 0.99; PROTHROMBIN TIME 10.6 SECONDS (9.7-12.0)
[2023-11-26] MEDS ORDERED: HYDROmorphone 0.5 MG/0.5 ML Syringe ONE (06:17)
[2023-11-26] MEDS ORDERED: Metoclopramide 10 MG/2 ML SDV ONE (06:17)
[2023-11-26 06:19] LABS: PTT,PARTIAL THROMBOPLSTIN TIME 29.9 SECONDS (21.7-31.4)
[2023-11-26] MEDS ORDERED: HYDROmorphone 0.5 MG/0.5 ML Syringe IVPUSH ONE ×3 (06:24→09:18)
[2023-11-26] MEDS ORDERED: Metoclopramide 10 MG/2 ML SDV IVPUSH ONE (06:26)
[2023-11-26] MEDS ORDERED: Lactated Ringers 1,000 ML IV SCH (06:30)
[2023-11-26] MEDS ORDERED: Sodium Chloride 0.9% 10 ML Syringe FLUSH ONE (07:29)
[2023-11-26] MEDS ORDERED: Iopamidol 612 MG/ML 100 ML Bottle IVPUSH ONE (07:29)
[2023-11-26] MEDS ORDERED: Iopamidol 612 MG/ML 30 ML SDV IVPUSH ONE (07:29)
[2023-11-26] MEDS ORDERED: Sodium Chloride 0.9% 100 ML IV SCH (07:30)
[2023-11-26 16:35] VITALS: BP 136/74; PULSE 100
== END 2023-11-26 10:21 | disposition home or self-care (01) ==
LOC: JD.ED 04:38
DX: R60.0 Localized edema (principal); L29.9 Pruritus, unspecified
CPT/HCPCS: 36415; 71260; 74177; 80053; 82977; 83735; 83880; 85025; 85379; 85610; 85730; 86140; 93970; 96374; 96375; 96376; 99284; A9270; J1170; J2765; J3490; J7120; Q9967; 99283

== ENCOUNTER 2023-11-28 10:47 | Emergency (ER) | payer BC ==
[2023-11-28] MEDS ORDERED: Sodium Chloride 0.9% 10 ML Syringe FLUSH PRN (11:07)
[2023-11-28] MEDS ORDERED: Orphenadrine 60 MG/2 ML Inj IM ONE (11:19)
[2023-11-28] MEDS ORDERED: Ondansetron 4 MG Tab.DIS PO ONE (11:21)
[2023-11-28] MEDS ORDERED: HYDROmorphone 1 MG/ML Syringe IM ONE (11:22)
[2023-11-28] MEDS ORDERED: Ondansetron 4 MG/2 ML SDV IVPUSH ONE (11:24)
[2023-11-28 11:32] LABS: BASOPHILS PERCENT AUTO 0.5 % (0.0-1.0); EOSINOPHILS ABSOLUTE AUTO 0.7 K/mm3 (0.0-0.4); EOSINOPHILS PERCENT AUTO 9.9 % (0.0-6.0); HEMATOCRIT 33.9 % (37.0-47.0); HEMOGLOBIN 11.6 gm/dl (12.0-16.0); IMMATURE GRAN ABSOLUTE AUTO 0.03 K/mm3 (0.00-0.05); IMMATURE GRAN PERCENT AUTO 0.4 % (0.0-0.4); LYMPHOCYTES ABSOLUTE AUTO 0.9 K/mm3 (1.0-4.8); LYMPHOCYTES PERCENT AUTO 11.8 % (24.0-44.0); MEAN CORPUSCULAR HEMOGLOBIN 30.8 pg (28.0-32.0); MEAN CORPUSCULAR HGB CONC 34.2 g/dl (32.0-36.0); MEAN CORPUSCULAR VOLUME 89.9 fl (83.0-99.0); MEAN PLATELET VOLUME 8.9 fl (9.4-12.3); MONOCYTES ABSOLUTE AUTO 0.6 K/mm3 (0.0-0.8); MONOCYTES PERCENT AUTO 8.2 % (0.0-8.0); NEUTROPHILS ABSOLUTE AUTO 5.2 K/mm3 (1.8-7.7); NEUTROPHILS PERCENT AUTO 69.2 % (41.0-71.0); PLATELET COUNT,PLT 281 K/mm3 (150-400); RED BLOOD CELL COUNT 3.77 M/mm3 (4.10-5.30); WHITE BLOOD CELL COUNT,WBC 7.45 K/mm3 (3.9-11.3)
[2023-11-28 12:03] LABS: A/G RATIO 0.8 (1-2); ALBUMIN 3.8 g/dl (3.4-5.0); ANION GAP 12.8 (5-15); BILIRUBIN TOTAL 0.5 mg/dL (0.2-1.0); CALCIUM 9.5 mg/dL (8.5-10.1); CREATININE 1.6 mg/dL (0.55-1.02); EST CRCL DRUG DOSING (CG) 27.53 mL/min; POTASSIUM,K 3.8 mEq/L (3.5-5.1); PROTEIN TOTAL,TP 8.5 g/dl (6.4-8.2)
[2023-11-28 12:37] VITALS: BP 116/82; PULSE 96
== END 2023-11-28 12:35 | disposition home or self-care (01) ==
LOC: JD.ED 10:47
DX: M25.512 Pain in left shoulder (principal); K21.9 Gastro-esophageal reflux disease without esophagitis; Z79.899 Other long term (current) drug therapy; Z88.1 Allergy status to other antibiotic agents; Z88.8 Allergy status to other drugs, medicaments and biological substances; Z91.011 Allergy to milk products; Z91.018 Allergy to other foods; Z91.048 Other nonmedicinal substance allergy status
CPT/HCPCS: 36415; 73030-26-LT; 73030-LT; 80053; 84484; 85025; 93005; 93010; 96372; 96374; 99283; 99284-25; J1170; J2360; J2405

== ENCOUNTER 2025-04-13 23:27 | Emergency (ER) | payer BC ==
[2025-04-14] MEDS ORDERED: Sodium Chloride 0.9% 10 ML Syringe FLUSH PRN (00:15)
[2025-04-14 00:35] LABS: BASOPHILS PERCENT AUTO 0.3 % (0.0-1.0); EOSINOPHILS PERCENT AUTO 0.1 % (0.0-6.0); HEMATOCRIT 34.5 % (37.0-47.0); HEMOGLOBIN 11.9 gm/dl (12.0-16.0); IMMATURE GRAN ABSOLUTE AUTO 0.04 K/mm3 (0.00-0.05); IMMATURE GRAN PERCENT AUTO 0.5 % (0.0-0.4); LYMPHOCYTES ABSOLUTE AUTO 0.8 K/mm3 (1.0-4.8); LYMPHOCYTES PERCENT AUTO 9.8 % (24.0-44.0); MEAN CORPUSCULAR HEMOGLOBIN 29.8 pg (28.0-32.0); MEAN CORPUSCULAR HGB CONC 34.5 g/dl (32.0-36.0); MEAN CORPUSCULAR VOLUME 86.5 fl (83.0-99.0); MEAN PLATELET VOLUME 9.7 fl (9.4-12.3); MONOCYTES ABSOLUTE AUTO 0.5 K/mm3 (0.0-0.8); MONOCYTES PERCENT AUTO 6.8 % (0.0-8.0); NEUTROPHILS ABSOLUTE AUTO 6.4 K/mm3 (1.8-7.7); NEUTROPHILS PERCENT AUTO 82.5 % (41.0-71.0); PLATELET COUNT,PLT 165 K/mm3 (150-400); RED BLOOD CELL COUNT 3.99 M/mm3 (4.10-5.30); WHITE BLOOD CELL COUNT,WBC 7.79 K/mm3 (3.9-11.3)
[2025-04-14 00:37] LABS: APPEARANCE,URINE CLEAR (Clear); BILIRUBIN,URINE NEGATIVE (Negative); COLOR,URINE YELLOW (Yellow); GLUCOSE,URINE NEGATIVE (Negative); KETONES,URINE NEGATIVE (Negative); LEUKOCYTE ESTERASE,URINE NEGATIVE (Negative); NITRITE,URINE NEGATIVE (Negative); OCCULT BLOOD,URINE TRACE-LYSED (Negative); PROTEIN,URINE NEGATIVE (Negative); UROBILINOGEN,URINE 0.2 (0.2-1.0)
[2025-04-14] MEDS: Sodium Chloride 0.9% 1,000 ML IV ONE (00:39)
[2025-04-14 00:53] LABS: AMORPHOUS SEDIMENT,URINE RARE /hpf (NOT SEEN); BACTERIA,URINE FEW /hpf (FEW); EPITHELIAL CELLS,URINE 0-5 /hpf (0-5); MUCUS,URINE RARE /hpf (FEW); RBC,URINE 0-5 /hpf (0-5); WBC,URINE 0-5 /hpf (0-5)
[2025-04-14 00:54] LABS: LACTIC ACID 0.5 mmol/L (0.4-2.0)
[2025-04-14 01:05] LABS: A/G RATIO 0.9 (1-2); ALBUMIN 3.6 g/dl (3.4-5.0); ANION GAP 14.5 (5-15); BILIRUBIN TOTAL 0.4 mg/dL (0.2-1.0); BUN/CREATININE RATIO 12.3 (14-18); CALCIUM 9.3 mg/dL (8.5-10.1); CREATININE 1.3 mg/dL (0.55-1.02); EST CRCL DRUG DOSING (CG) 33.05 mL/min; MAGNESIUM 1.6 mg/dL (1.8-2.4); POTASSIUM,K 3.5 mEq/L (3.5-5.1); PROTEIN TOTAL,TP 7.8 g/dl (6.4-8.2); TSH 0.892 uIU/mL (0.358-3.74)
[2025-04-14] MEDS: Magnesium Oxide 400 MG Tab PO ONE (02:23)
[2025-04-14 02:47] VITALS: BP 144/72; PULSE 98
== END 2025-04-14 02:45 | disposition home or self-care (01) ==
LOC: JD.ED 23:27
DX: E83.42 Hypomagnesemia (principal); E87.1 Hypo-osmolality and hyponatremia; R63.0 Anorexia; R79.89 Other specified abnormal findings of blood chemistry; Z86.16 Personal history of COVID-19; Z90.49 Acquired absence of other specified parts of digestive tract; Z88.0 Allergy status to penicillin; Z88.1 Allergy status to other antibiotic agents; Z88.8 Allergy status to other drugs, medicaments and biological substances; Z91.011 Allergy to milk products; Z91.018 Allergy to other foods; Z79.899 Other long term (current) drug therapy
CPT/HCPCS: 36415; 71045; 80053; 81001; 83605; 83735; 84443; 84484; 85025; 87040; 93005; 96360; 96361; 99285; A9270; J7030; 93010; 99284